=== PATIENT | female | born 1965 | race Caucasian/White ===

== ENCOUNTER 2016-08-30 11:33 | Emergency (ER) | payer BC, OTHER ==
[~2016-08-30] VITALS: Ht 167.6 cm; Wt 86.2 kg
[2016-08-30] MEDS ORDERED: PROZ40CA PO (11:39)
[2016-08-30] MEDS ORDERED: KETOROLAC 30 MG/ML VIAL (J1885) IM ONE (12:00)
--- NOTE | 2016-08-30 12:43 | REP ---
Clinical: Trauma . Technique: Internal rotation, external rotation, and Y view right shoulder . Findings: No acute fracture or dislocation. The acromioclavicular and glenohumeral joints are intact. Mild cortical irregularity and spurring at the acromioclavicular joint. No periarticular calcifications are appreciated. Sub acromial space is normal. Surrounding soft tissues are unremarkable. Impression: Mild degenerative changes at the acromioclavicular joint. No acute fracture or dislocation. Signed by Alok Romero MD 08/30/2016 12:35 P
[2016-08-30] MEDS ORDERED: METAL LOCK LOOP XX ONE (12:44)
--- NOTE | 2016-08-30 12:46 | REP ---
Clinical: Trauma. Technique: Frontal view of the pelvis with neutral and frog lateral views of the right hip. Findings: No acute fracture dislocation. Skeletal structures, joint spaces, and surrounding soft tissues are normal for age. Phleboliths noted within the pelvis. Impression: No acute fracture or dislocation. Signed by Alok Romero MD 08/30/2016 12:38 P
[2016-08-30] MEDS ORDERED: MOBI7.5T10 PO (13:07)
[2016-08-30] MEDS ORDERED: PERC5TAB6 PO (13:09)
[2016-08-30 13:24] VITALS: BP 159/81
== END 2016-08-30 13:37 | disposition home or self-care (01) ==
LOC: M ED 12:38
DX: R29.6 Repeated falls (principal); M25.551 Pain in right hip; M19.011 Primary osteoarthritis, right shoulder; M25.511 Pain in right shoulder; F41.9 Anxiety disorder, unspecified; Z79.899 Other long term (current) drug therapy
CPT/HCPCS: 73030; 73502; 96372; 99282; J1885